=== PATIENT | female | born 1935 | race Caucasian/White ===

== ENCOUNTER 2017-02-22 19:02 | Emergency (ER) | payer MEDICARE, OTHER ==
[~2017-02-22] VITALS: Ht 167.6 cm; Wt 81.4 kg
[~2017-02-22 19:02] MED LIST: ASCO100089 PO; ASPI-628 PO; CHOL200016 PO; ESTR0.3T2 PO; LEVO112T4 PO; PROG100C6 PO; RES30 PO; VITA200T7 PO; [UNRECOGNIZED DRUG - CODE] PO
[2017-02-22 19:10] VITALS: BP 107/67; PULSE 66; RESP 16; O2SAT 95
--- NOTE | 2017-02-22 19:26 | ED.REPORT ---
HPI-Trauma Minor / Fall Date of Service Feb 22, 2017 ED Provider: Corey Woody MD Patient is an 81 year old female who presents to the ED due to a fall. The patient reports that she hit her head on the wood floor and has a laceration to her forehead. Patient is unsure if she lost consciousness. She denies neck pain or numbness. The patient states that her shoe caught on a rug, which caused her to fall. She is not currently taking any anticoagulants. Nursing Notes Stated Complaint: NEED STITCHES/HEAD INJURY Chief Complaint: Head, Face, Neck Trauma Nursing Notes Reviewed: Yes Allergies: Coded Allergies: Penicillins (Verified Allergy, Unknown, 08/21/14) Scheduled Ascorbic Acid (Vitamin C) 1,000 Mg Tab.chew 1,000 MG PO DAILY Aspirin (Aspir 81) 81 Mg Tablet.dr 81 MG PO DAILY Cholecalciferol (Vitamin D3) (Vitamin D) 2,000 Unit Tablet 2,000 UNIT PO DAILY Cholecalciferol (Vitamin D3) (Vitamin D) 2,000 Unit Tablet 2,000 UNIT PO DAILY Estrogens, Conjugated (Premarin) 0.3 Mg Tablet 0.3 MG PO DAILY Estrogens, Conjugated (Premarin) 0.3 Mg Tablet 0.3 MG PO DAILY Levothyroxine (Levothyroxine) 112 Mcg Tablet 112 MCG PO DAILY Scheduled PRN Temazepam (Temazepam) 30 Mg Cap 30 MG PO HS PRN PRN For Insomnia Miscellaneous Medications Lecithin (Lecithin) 1,200 Mg Capsule 1,200 MG PO Progesterone,Micronized (Progesterone) 100 Mg Capsule 100 MG PO Vitamin E Mixed (Vitamin E) 200 Unit Tablet 200 UNIT PO General Time Seen by MD: 19:26 Chief Complaint Fall Hx Obtained From: Patient Arrived By: Walk-in Onset Occurred: Just prior to arrival Symptom Duration: Since onset Caused by: Fall on ground Location: Head Quality: Painful Severity: Current: Mild Similar Sx Previous: No Past Medical History Past Medical History none reported Past Surgical History Reports: Appendectomy, , Tonsillectomy Smoking History Never Smoker Social History Other Social History: Good social support Ambulatory Status Independent Review of Systems Review of Systems Note: +head laceration Constitutional: Denies: Chills, Fever, Weakness - generalized Respiratory: Denies: Non-productive cough, Shortness of breath Skin: Denies Itching, Denies Rash Neurologic: Denies: Lightheaded, Numbness, Weakness Complete sys rev & neg: except as marked. GI: Denies: Nausea, Vomiting Physical Exam Initial Vital Signs Vital Signs (First) Date Time Temp Pulse Resp B/P Pulse Ox O2 Delivery O2 Flow Rate FiO2 02/22/17 19:10 36.8 66 16 107/67 95 Room Air Initial VS: Reviewed General/Constitutional: Awake, Alert, No acute distress Neck: Atraumatic, Supple, Non-tender, No midline vertebral tend Head / Eyes: Normocephalic, PERRL, EOMI laceration to the forehead Respiratory / Chest: Atraumatic, No respiratory distress Upper Extremity / MS: Atraumatic, Full range of motion Lower Extremity / Pelvis / MS: Atraumatic, Full range of motion Skin: Atraumatic, Color NL, No rash, Warm, Dry Neurologic: Oriented X3, Speech NL, No motor deficits, No sensory deficits Psychiatric: Affect NL, Mood NL Interpretation & Diagnostics CT Head Interpretation FINDINGS: Image quality: Excellent. CSF spaces: Basal cisterns are patent. No extra-axial fluid collections. The ventricles are symmetric in size and shape. Brain: No intracranial bleeds or masses. There is cerebral volume loss for age, with resultant ventricular and sulcal prominence. There are periventricular and deep white matter chronic small vessel ischemic changes. There is intracranial internal carotid artery atherosclerosis. Skull and face: Calvarium and visualized facial bones appear intact, without suspicious lesions. Sinuses: Visualized sinuses and mastoids are clear. IMPRESSION: No trauma found. Dictated by: Yevgeniy Keane M.D. on 02/22/2017 at 20:47 Approved by: Yevgeniy Keane M.D. on 02/22/2017 at 20:47 Interpretation / Wet Read by: Interpret - Radiologist Procedures Laceration Management Time: 20:49 Procedure Performed by: Allied health pract Consent / Setup / Site Prep: Consent from patient, Time-out performed, Hand hygiene observed Location of Wound: forehead Wound Length: 1 cm Local Anesthesia: Lidocaine 1% Wound Preparation: Normal saline Irrigation: Copious Undermining / Margins: Flaps aligned Repair Skin: ___ O (5), Nylon # Sutures - Skin: 5 Suture Technique: Simple Post-Procedure / Complications: Antibiotic oint applied, Dressing applied, No complications, Condition improved, Tolerated procedure well, Patient stable Re-Eval/Medical Decision Re-Evaluation/Progress #1: Time of Eval: 20:37 Re-Evaluation/Progress Note: Discussed plan for laceration management. Patient understands and agrees to plan. All questions were addressed. Re-Evaluation/Progress #2: Time of Eval: 21:09 Re-Evaluation/Progress Note: Discussed CT results and plan for discharge. Patient understands and agrees to plan. All questions were addressed. Counseled Regarding: Diagnosis, Lab results, Need for follow-up, When/why to return to ED Discharge & Departure Impression: Primary Impression: Fall from ground level Additional Impression: Facial laceration Encounter type: initial encounter Qualified Code: S01.81XA - Laceration without foreign body of other part of head, initial encounter Disposition: Home Discharge Condition All VS Reviewed: Yes Condition: Stable Patient Instructions: Acute Wound Care (GEN) Additional Instructions: Kimmy we evaluated U for a fall with a forehead laceration. A CT scan did not show any serious intracranial injury, and laceration was sewn. Keep the laceration covered with antibiotic ointment, return to us immediately if you have any redness swelling or discharge from the wound and return in 5 days for removal of the stitches. If you experience any headache, nausea and vomiting, unsteadiness on her feet return immediately for reevaluation as it is possible to have delayed bleeding into the brain after a fall. Thanks for trusting with your care toncharis Referrals: Mik Goddard MD (PCP) Meiribshawn Attestation Portions of this note were transcribed by Stacey Romero. I, Dr. Woody personally performed the history, physical exam and medical decision-making; I reviewed and confirmed the accuracy of the information in the transcribed note. Signed by: Brooks Villagomez, 02/22/17 copies to: Mik Goddard MD, Donald L MD Feb 22, 2017 19:26 Marion Romero Feb 22, 2017 19:32
--- NOTE | 2017-02-22 20:49 | DRSVH ---
PROCEDURE: CT BRAIN WITHOUT CONTRAST ([id number]) INDICATIONS: fall with head injury TECHNIQUE: Noncontrast 4.5 mm thick angled axial sections acquired from the foramen magnum to the vertex, with c oronal reformats. COMPARISON: None. FINDINGS: Image quality: Excellent. CSF spaces: Basal cisterns are patent. No extra-axial fluid collections. The ventricles are symmet smita in size and shape. Brain: No intracranial bleeds or masses. There is cerebral volume loss for age, with resultant vent ricular and sulcal prominence. There are periventricular and deep white matter chronic small vessel ischemic changes. There is intracranial internal carotid artery atherosclerosis. Skull and face: Calvarium and visualized facial bones appear intact, without suspicious lesions. Sinuses: Visualized sinuses and mastoids are clear. IMPRESSION: No trauma found. Dictated by: Yevgeniy Keane M.D. on 02/22/2017 at 20:47 Approved by: Yevgeniy Keane M.D. on 02/22/2017 at 20:47
[2017-02-22 21:19] VITALS: BP 124/79; PULSE 64; O2SAT 96
== END 2017-02-22 21:20 | disposition home or self-care (01) ==
LOC: SED 19:02
DX: S01.81XA Laceration without foreign body of other part of head, initial encounter (principal); W01.198A Fall on same level from slipping, tripping and stumbling with subsequent striking against other object, initial encounter; Y93.9 Activity, unspecified; Y92.9 Unspecified place or not applicable; Y99.9 Unspecified external cause status; Z79.82 Long term (current) use of aspirin; Z88.0 Allergy status to penicillin

== ENCOUNTER 2017-02-27 09:50 | Emergency (ER) | payer MEDICARE, OTHER ==
[~2017-02-27] VITALS: Ht 167.6 cm; Wt 77.3 kg
[2017-02-27 09:54] VITALS: BP 114/76; PULSE 67; RESP 18; O2SAT 96
--- NOTE | 2017-02-27 10:13 | ED.REPORT ---
HPI-Rash / Abscess Date of Service Feb 27, 2017 ED Provider: Red Crawford MD Patient is an 81 year old female with a history of a ground level fall 5 days ago who presents to the ED for a wound check. Patient had no lose of consciousness, fever, nausea or vomiting. She denies erythema, swelling, discharge or pain at this time. Nursing Notes Stated Complaint: TAKE OUT STITCHES Chief Complaint: Wound Recheck/Suture Removal Nursing Notes Reviewed: Yes Allergies: Coded Allergies: Penicillins (Verified Allergy, Unknown, 08/21/14) Scheduled Ascorbic Acid (Vitamin C) 1,000 Mg Tab.chew 1,000 MG PO DAILY Aspirin (Aspir 81) 81 Mg Tablet.dr 81 MG PO DAILY Cholecalciferol (Vitamin D3) (Vitamin D) 2,000 Unit Tablet 2,000 UNIT PO DAILY Cholecalciferol (Vitamin D3) (Vitamin D) 2,000 Unit Tablet 2,000 UNIT PO DAILY Estrogens, Conjugated (Premarin) 0.3 Mg Tablet 0.3 MG PO DAILY Estrogens, Conjugated (Premarin) 0.3 Mg Tablet 0.3 MG PO DAILY Levothyroxine (Levothyroxine) 112 Mcg Tablet 112 MCG PO DAILY Scheduled PRN Temazepam (Temazepam) 30 Mg Cap 30 MG PO HS PRN PRN For Insomnia Miscellaneous Medications Lecithin (Lecithin) 1,200 Mg Capsule 1,200 MG PO Progesterone,Micronized (Progesterone) 100 Mg Capsule 100 MG PO Vitamin E Mixed (Vitamin E) 200 Unit Tablet 200 UNIT PO General Time Seen by MD: 10:13 Chief Complaint Other (suture removal) Hx Obtained From: Patient Arrived By: Walk-in Onset Occurred: 5 days ago Symptom Duration: Since onset Location: : Head/face Severity: Current: No pain currently Recent Healthcare: Recent doctor visit Similar Sx Previous: Yes Past Medical History Past Medical History none reported Past Surgical History Reports: Appendectomy, , Tonsillectomy Smoking History Never Smoker Social History Other Social History: Good social support Ambulatory Status Independent Review of Systems Review of Systems Note: -discharge Constitutional: Denies: Chills, Fever GI: Denies: Nausea, Vomiting Skin: Denies Bruising, Denies Itching, Denies Swelling Complete sys rev & neg: except as marked. Neurologic: Denies: Change LOC Physical Exam Initial Vital Signs Vital Signs (First) Date Time Temp Pulse Resp B/P Pulse Ox O2 Delivery O2 Flow Rate FiO2 02/27/17 09:54 36.4 67 18 114/76 96 Room Air Initial VS: Reviewed General/Constitutional: Awake, Alert, No acute distress Skin: Color NL, No rash, Warm, Dry Head / Eyes: Normocephalic, PERRL, EOMI 3cm curvilinear laceration over the left eye with 5 sutures no surrounding erythema good reapproximation of margins no discharge or swelling Respiratory / Chest: Atraumatic, No respiratory distress Upper Extremity / MS: Atraumatic, Full range of motion Lower Extremity / Pelvis / MS: Atraumatic, Full range of motion Neurologic: Oriented X3, Speech NL, No motor deficits, No sensory deficits Procedures Skin: Wound / Burn Check Skin: Wound/Burn Check: eyebrow laceration, 5 sutures removed Normal Wound / Burn Check: Healing well, No apparent infection, No discharge , No abscess / fluctuance Re-Eval/Medical Decision Med Decision/Clinical Course 81-year-old female who is 5 days status post ground-level fall with laceration over her left eyebrow repaired with sutures 5 days ago. Here for suture removal. I was asked by the nurse to look at the wound. The wound is healing well. There is no evidence of infection. There is no evidence of abscess. Sutures were removed. Return precautions given. Re-Evaluation/Progress : Time of Eval: 10:17 Re-Evaluation/Progress Note: Discussd plan to remove sutures and discharge. Patient understands and agrees to plan. All questions were addressed. Counseled Regarding: Diagnosis, Need for follow-up, When/why to return to ED Discharge & Departure Impression: Primary Impression: Visit for suture removal Disposition: Home Discharge Condition All VS Reviewed: Yes Condition: Stable Referrals: Mik Goddard MD (PCP) Brooks Attestation Portions of this note were transcribed by Stacey Romero. I, Dr. Crawford personally performed the history, physical exam and medical decision-making; I reviewed and confirmed the accuracy of the information in the transcribed note. Signed by: Brooks Villagomez, 02/27/17 copies to: Mik Goddard MD, Ben M MD Feb 27, 2017 10:13 Marion Romero Feb 27, 2017 10:20
== END 2017-02-27 10:15 | disposition home or self-care (01) ==
LOC: SED 09:50
DX: S01.112D Laceration without foreign body of left eyelid and periocular area, subsequent encounter (principal); Z79.82 Long term (current) use of aspirin